=== PATIENT | male | born 1930 | race Caucasian/White ===

== ENCOUNTER → 2016-10-03 | Outpatient (CLI) | payer MEDICARE ==
[~2016-10-03] MED LIST: ACET325S8 PO; HYDR-2768 PO; LIPI40TA PO; TOPR50TA PO; TRIL135C PO
[2016-10-03 09:12] LABS: AUTOMATED NEUTROPHIL # 5.4 TH/MM3 (1.8-7.7); BASOPHIL % 0.6 % (0.0-2.0); EOSINOPHIL # 0.1 TH/MM3 (0-0.4); EOSINOPHIL % 1.1 % (0.0-4.0); HEMATOCRIT 41.6 % (39.0-51.0); HEMO FLAGS DIFF FINAL; LYMPH % 14.7 % (9.0-44.0); LYMPHOCYTE # 1.1 TH/MM3 (1.0-4.8); MEAN CELL VOLUME 93.2 FL (80.0-100.0); MEAN CORPUSCULAR HEMOGLOBIN 30.4 PG (27.0-34.0); MEAN CORPUSCULAR HGB CONC 32.6 % (32.0-36.0); MONO % 10.6 % (0.0-8.0); PLATELET COUNT 252 TH/MM3 (150-450); RED BLOOD COUNT 4.46 MIL/MM3 (4.50-5.90); RED CELL DISTRIBUTION WIDTH 13.7 % (11.6-17.2); WHITE BLOOD COUNT 7.5 TH/MM3 (4.0-11.0)
[2016-10-03 10:03] LABS: ALKALINE PHOSPHATASE 56 U/L (45-117); ALT (GPT) 23 U/L (12-78); ANION GAP 7 MEQ/L (5-15); AST (GOT) 18 U/L (15-37); BICARBONATE 31.8 MEQ/L (21.0-32.0); BLOOD UREA NITROGEN 13 MG/DL (7-18); CHLORIDE 101 MEQ/L (98-107); GLOMERULAR FILTRATION RATE 62 ML/MIN (>89); GLUCOSE,FASTING 120 MG/DL (74-99); HDL CHOLESTEROL 72.2 MG/DL (40.0-60.0); LDL CHOLESTEROL 62 MG/DL (0-99); LDL CHOLESTEROL DIRECT 65 MG/DL (0-99); POTASSIUM 4.6 MEQ/L (3.5-5.1); SODIUM (NA) 140 MEQ/L (136-145); TOTAL BILIRUBIN ADULT 0.7 MG/DL (0.2-1.0)
[2016-10-03 12:29] LABS: HEMOGLOBIN A1b 1.6 %; HEMOGLOBIN Ao 85.3 %; HEMOGLOBIN LA1C 1.9 %; HEMOGLOBIN P3 3.7 %
[2016-10-03 16:28] LABS: BLOOD, URINE NEG (NEG); COMMENT (UR) CULT NOT INDICATED; CULTURE IF INDICATED CULT NOT INDICATED; GLUCOSE,URINE NEG (NEG); HYALINE CAST, URINE 27 /lpf (RARE); KETONE, URINE NEG (NEG); MUCUS URINE FEW /lpf (OCC); NITRITE,URINE NEG (NEG); URINE COLOR YELLOW (YELLW/STRAW)
== END ==
LOC: PLAB 07:48
PROVIDERS: ATTEND Family Medicine
DX: E78.5 Hyperlipidemia, unspecified (principal); I10 Essential (primary) hypertension; E11.9 Type 2 diabetes mellitus without complications; K25.9 Gastric ulcer, unspecified as acute or chronic, without hemorrhage or perforation; K21.9 Gastro-esophageal reflux disease without esophagitis; C43.9 Malignant melanoma of skin, unspecified; J30.2 Other seasonal allergic rhinitis; E66.3 Overweight; Z12.5 Encounter for screening for malignant neoplasm of prostate; Z51.81 Encounter for therapeutic drug level monitoring
CPT/HCPCS: 36415; 80053; 80061; 81001; 83036; 83721; 84443; 85025; G0103

== ENCOUNTER → 2017-05-03 | Outpatient (CLI) | payer MEDICARE ==
[2017-05-03 13:30] LABS: BLOOD, URINE NEG (NEG); GLUCOSE,URINE NEG (NEG); KETONE, URINE NEG (NEG); MUCUS URINE FEW /lpf (OCC); NITRITE,URINE NEG (NEG); SQUAMOUS EPITHELIAL CELL URINE <1 /hpf (0-5); URINE COLOR YELLOW (YELLW/STRAW)
[2017-05-03 13:34] LABS: BASOPHIL # 0.1 TH/MM3 (0-0.2); BASOPHIL % 0.8 % (0.0-2.0); EOSINOPHIL # 0.1 TH/MM3 (0-0.4); EOSINOPHIL % 1.5 % (0.0-4.0); HEMO FLAGS DIFF FINAL; LYMPH % 22.8 % (9.0-44.0); LYMPHOCYTE # 1.4 TH/MM3 (1.0-4.8); MEAN CELL VOLUME 93.6 FL (80.0-100.0); MEAN CORPUSCULAR HEMOGLOBIN 31.8 PG (27.0-34.0); MEAN CORPUSCULAR HGB CONC 33.9 % (32.0-36.0); MONO % 8.7 % (0.0-8.0); NEUT % 66.2 % (16.0-70.0); PLATELET COUNT 246 TH/MM3 (150-450); RED BLOOD COUNT 4.27 MIL/MM3 (4.50-5.90); RED CELL DISTRIBUTION WIDTH 13.9 % (11.6-17.2)
[2017-05-03 13:43] LABS: MICRO ALBUMIN RANDOM URINE RAW 11.8 MG/L (0.0-30.0)
[2017-05-03 14:08] LABS: ANION GAP 7 MEQ/L (5-15); AST (GOT) 16 U/L (15-37); BICARBONATE 28.5 MEQ/L (21.0-32.0); BLOOD UREA NITROGEN 11 MG/DL (7-18); CHLORIDE 101 MEQ/L (98-107); GLOMERULAR FILTRATION RATE 71 ML/MIN (>89); GLUCOSE,FASTING 119 MG/DL (74-99); POTASSIUM 4.2 MEQ/L (3.5-5.1); SODIUM (NA) 136 MEQ/L (136-145)
[2017-05-03 14:23] LABS: ALKALINE PHOSPHATASE 56 U/L (45-117); ALT (GPT) 21 U/L (12-78); HDL CHOLESTEROL 67.9 MG/DL (40.0-60.0); LDL CHOLESTEROL 59 MG/DL (0-99); LDL CHOLESTEROL DIRECT 70 MG/DL (0-99); TOTAL BILIRUBIN ADULT 0.7 MG/DL (0.2-1.0)
[2017-05-03 14:55] LABS: HEMOGLOBIN A1a 1.2 %; HEMOGLOBIN A1b 1.8 %; HEMOGLOBIN Ao 84.6 %; HEMOGLOBIN P3 3.6 %
== END ==
LOC: PLAB 07:31
PROVIDERS: ATTEND Family Medicine
DX: I10 Essential (primary) hypertension (principal); E78.5 Hyperlipidemia, unspecified; E11.9 Type 2 diabetes mellitus without complications
CPT/HCPCS: 36415; 80053; 80061; 81001; 82043; 83036; 83721; 85025